=== PATIENT | male | born 1940 | race Caucasian/White ===

== ENCOUNTER 2019-09-05 08:04 | Emergency (ER) | payer MEDICARE, OTHER, SELFPAY ==
--- NOTE | 2019-09-05 08:27 | DI.CT.S_ITS ---
PROCEDURE: CT HEAD/BRAIN WO CON INDICATIONS: poss tia TECHNIQUE: Noncontrast 4.5 mm thick angled axial sections acquired from the foramen magnum to the vertex, with coronal and sagittal reformats. For radiation dose reduction, the following was used: automated exposure control, adjustment of mA and/or kV according to patient size. COMPARISON: None. FINDINGS: Image quality: Somewhat diminished locally in the area of metal artifact from what appears to be embolization coiling of a left [place] aneurysm, or other surgical procedure in that area. CSF spaces: Basal cisterns are patent. No extra-axial fluid collections. The ventricles are symmetric in size and shape. Brain: No intracranial bleeds or masses. There is cerebral volume loss for age, with resultant ventricular and sulcal prominence. There are periventricular and deep white matter chronic small vessel ischemic changes. There is intracranial internal carotid artery atherosclerosis. Skull and face: Calvarium and visualized facial bones appear intact, without suspicious lesions. Sinuses: Visualized sinuses and mastoids are clear. 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 No comparison studies, no mass or hemorrhage found. Sources possible stroke symptoms not identified. Dictated by: Ranjeet Arreguin M.D. on 09/05/2019 at 8:59 Approved by: Ranjeet Arreguin M.D. on 09/05/2019 at 9:01
[2019-09-05 08:31] VITALS: BP 147/71; PULSE 66; RESP 20; TEMP 36.8; O2SAT 100
[2019-09-05 08:36] LABS: Add Manual Diff / Slide Review NO; Basophils Absolute Auto 0 /uL (0-100); Basophils Percent Auto 0.7 % (0-2); Eosinophils Absolute Auto 100 /uL (0-450); Eosinophils Percent Auto 1.6 % (2-4); Hematocrit 40.6 % (41-53); Hemoglobin 13.8 g/dL (13.5-17.5); Lymphocytes Absolute Auto 1400 /uL (1100-4500); Lymphocytes Percent Auto 28.5 % (25-40); Mean Corpuscular Hemoglobin 31.9 PG (26-34); Monocytes Absolute Auto 400 /uL (0-900); Monocytes Percent Auto 7.6 % (3-14); Neutrophils Absolute Auto 3100 /uL (1500-7000); Neutrophils Percent Auto 61.6 % (50-75); Platelet Count 148 X10^3/uL (150-400); Red Blood Cell Count 4.32 X10^6/uL (4.5-5.9); Red Cell Distribution Width 13.2 % (11.6-14.8); White Blood Cell Count 5.1 X10^3/uL (4.5-11.0)
[2019-09-05 08:47] LABS: PTT Partial Thromboplastin Tim 29 SECONDS (26.4-36.2)
[2019-09-05 08:48] LABS: Alanine Aminotransferase 18 IU/L (21-72); Albumin 3.7 g/dL (3.5-5.0); Albumin Globulin Ratio 1.3 (1.0-2.8); Alkaline Phosphatase 55 U/L (38-126); Aspartate Aminotransferase 35 IU/L (17-59); BUN Creatinine Ratio 16.7 (6-22); Bilirubin Total 0.8 mg/dL (0.2-1.3); Blood Urea Nitrogen 15 mg/dL (9-20); Calcium 9.2 mg/dL (8.4-10.2); Carbon Dioxide 31 mmol/L (22-32); Chloride 105 mmol/L (98-107); Estimated Glomerular Filt Rate > 60.0 mL/min (>60); Globulin 2.9 g/dL (1.7-4.1); Glucose 89 mg/dL (80-110); HEMOLYSIS 34 (0-50); Potassium 3.7 mmol/L (3.4-5.1); Sodium 142 mmol/L (137-145); Total Protein 6.6 g/dL (6.3-8.2)
--- NOTE | 2019-09-05 08:53 | ED_ITS ---
HPI - Dizziness General Chief Complaint: Dizziness Stated Complaint: yesterday dizzy,doesn't remember Time Seen by Provider: 09/05/19 09:11 Source: patient Mode of arrival: Ambulatory Limitations: no limitations History of Present Illness HPI Narrative: 78-year-old male comes to the emergency department with episode of altered mental status yesterday. 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 Patient states he does remember how he got to the area that they served lunch but he managed to get there. He does not recall several hours. His family was present with and they states that he was complaining of feeling dizzy, being off balance and was not himself. They states he was not slurred or had dysarthria but he was slow to respond and did quite make sense. He did have a headache yesterday but did develop 1 early this morning which is not uncommon for him. He also complained of some vision changes yesterday which he described as fuzzy and kind of on the outside of his vision but this is all related 2nd hand as he does not recall. He did not have any vomiting, no chest pain, no shortness of breath no issues with bowel movements or urination. He did not have any obvious weakness on 1 side, no facial droop or other obvious focal neurologic changes. Patient does have a little bit a history of some drift or weakness in his right upper extre mity. 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 Surgery was done at [facility]. He has several antibiotic allergies. He is no longer on any daily medications other than Advil as needed for headaches. No tobacco, no alcohol or illicit. He lives in [place] and is here for the next week. Patient is currently asymptomatic. Related Data Home Medications Medication Instructions Recorded Confirmed No Known Home Medications 09/05/19 09/05/19 Allergies Allergy/AdvReac Type Severity Reaction Status Date / Time clindamycin AdvReac Mild Verified 09/05/19 08:37 ciprofloxacin [From Cipro] AdvReac Verified 09/05/19 08:37 Penicillins AdvReac Verified 09/05/19 08:37 Review of Systems Review of Systems ROS Unobtainable: All systems reviewed & are unremarkable except as noted in HPI and below PFSH Medical History (Updated 09/05/19 @ 10:51 by Earline Galdamez DO) Arteriovenous fistula (Acute) Surgical History (Updated 09/05/19 @ 09:40 by Earline Galdamez DO) H/O prostatectomy (Acute) Social History (Updated 09/05/19 @ 09:40 by Earline Galdamez DO) marital status: details: lives in [place] Smoking Status: Never smoker alcohol intake: never substance use type: does not use Social History (Updated 09/05/19 @ 09:40 by Earline Galdamez DO) marital status: details: lives in [place] Smoking Status: Never smoker alcohol intake: never substance use type: does not use Exam Narrative Exam Narrative: GEN: well nourished, well appearing male, alert and oriented x 3, patient appears to be in mild distress. HEENT: Atraumatic, pupils are equal round reactive to light, extraocular movements are intact, nares are clear, TMs are clear with no fluid, there is no conjunctival pallor. Throat is clear without any exudates, erythema, tonsillar enlargement or uvular deviation, no facial droop HEART: Regular rate and rhythm without murmur, clicks, rubs. No carotid bruits, pulses are equal in upper and lower extremities LUNGS:Lungs clear to auscultation, no wheezes, rales, crackles, chest moves symmetrically ABD:bowel sounds normal, soft, non-tender, no guarding, rebound, rigidity, no masses noted, no hepatosplenomegaly :No CVA tenderness MSCL: Non-tender, no muscle atrophy, muscles strength 5/5 upper and lower extremities, patient has very mild drift on the right although patient and family both state that this is chronic. Full range of motion, normal gait NEURO:CN 2-12 intact, sensation normal, reflexes 2/4 upper and lower extremities. finger nose finger test normal, heel maza test normal SKIN: No rash, no erythema. Initial Vital Signs Initial Vital Signs: Vital Signs Temperature 98.2 F 09/05/19 08:31 Pulse Rate 66 09/05/19 08:31 Respiratory Rate 20 09/05/19 08:31 Blood Pressure 147/71 H 09/05/19 08:31 Pulse Oximetry 100 09/05/19 08:31 Scores NIH Stroke Scale Level of Conciousness: Alert, keenly responsive Ask month/age: Answers both questions correctly. Open/close eyes, close hand: Performs both tasks correctly Best gaze horizontal: Normal Visual berrios: No visual loss Facial palsy: Normal symetrical movement Left arm drift: No drift for full 10 sec Right arm drift: Drifts down, not to bed (very mild) Left leg drift: No drift for full 10 sec Right leg drift: No drift for full 10 sec Limb ataxia: Absent Sensory on face/arms/legs: Normal, no sensory loss Best language: No aphasia, normal Dysarthria: Normal Extinction or inattention: No abnormality Total NIH Stroke scale score: 1 Course Orders Ordered: ED Orders 09/05/19 08:27 CT head/brain wo con Stat 09/05/19 08:28 Complete Blood Count AUTO DIFF Stat Comprehensive Metabolic Panel Stat Partial Thromboplastin Time Stat Prothrombin Time INR Stat Troponin & CK Cardiac Panel Stat 09/05/19 09:13 XR chest 1V Stat Vital Signs Vital signs: Vital Signs - 8 hr 09/05/19 11:05 Pulse Rate 79 Respiratory Rate 21 Blood Pressure 136/67 Pulse Oximetry 99 MDM - Dizziness Lab Data Attestation: I reviewed the patient's lab results. Result diagrams: 09/05/19 08:28 09/05/19 08:28 Labs: Lab Results 09/05/19 09/05/19 09/05/19 Range/Units 08:28 08:28 08:28 WBC 5.1 (4.5-11.0) X10^3/uL RBC 4.32 L (4.5-5.9) X10^6/uL Hgb 13.8 (13.5-17.5) g/dL Hct 40.6 L (41-53) % MCV 94.0 (80-100) fL MCH 31.9 (26-34) PG MCHC 34.0 (30-36) % RDW 13.2 (11.6-14.8) % Plt Count 148 L (150-400) X10^3/uL Neut % (Auto) 61.6 (50-75) % Lymph % (Auto) 28.5 (25-40) % Wheeler % (Auto) 7.6 (3-14) % Eos % (Auto) 1.6 L (2-4) % Baso % (Auto) 0.7 (0-2) % Neut # (Auto) 3100 (2016-0924) /uL Lymph # (Auto) 1400 (8096-1923) /uL Wheeler # (Auto) 400 (0-900) /uL Eos # (Auto) 100 (0-450) /uL Baso # (Auto) 0 (0-100) /uL PT 11.0 (10.1-12.7) SECONDS INR 1.0 (0.9-1.3) APTT 29 (26.4-36.2) SECONDS Sodium 142 (137-145) mmol/L Potassium 3.7 (3.4-5.1) mmol/L Chloride 105 (98-107) mmol/L Carbon Dioxide 31 (22-32) mmol/L BUN 15 (9-20) mg/dL Creatinine 0.90 (0.66-1.25) mg/dL Estimated GFR > 60.0 (>60) mL/min BUN/Creatinine Ratio 16.7 (6-22) Glucose 89 (80-110) mg/dL Calcium 9.2 (8.4-10.2) mg/dL Total Bilirubin 0.8 (0.2-1.3) mg/dL AST 35 (17-59) IU/L ALT 18 L (21-72) IU/L Alkaline Phosphatase 55 (38-126) U/L Total Creatine Kinase (55-170) U/L CK-MB (CK-2) CK-MB (CK-2) Rel Index Troponin I (0.01-0.034) ng/mL Total Protein 6.6 (6.3-8.2) g/dL Albumin 3.7 (3.5-5.0) g/dL Globulin 2.9 (1.7-4.1) g/dL Albumin/Globulin Ratio 1.3 (1.0-2.8) 09/05/19 Range/Units 08:28 WBC (4.5-11.0) X10^3/uL RBC (4.5-5.9) X10^6/uL Hgb (13.5-17.5) g/dL Hct (41-53) % MCV (80-100) fL MCH (26-34) PG MCHC (30-36) % RDW (11.6-14.8) % Plt Count (150-400) X10^3/uL Neut % (Auto) (50-75) % Lymph % (Auto) (25-40) % Wheeler % (Auto) (3-14) % Eos % (Auto) (2-4) % Baso % (Auto) (0-2) % Neut # (Auto) (1346-8828) /uL Lymph # (Auto) (9209-3503) /uL Wheeler # (Auto) (0-900) /uL Eos # (Auto) (0-450) /uL Baso # (Auto) (0-100) /uL PT (10.1-12.7) SECONDS INR (0.9-1.3) APTT (26.4-36.2) SECONDS Sodium (137-145) mmol/L Potassium (3.4-5.1) mmol/L Chloride (98-107) mmol/L Carbon Dioxide (22-32) mmol/L BUN (9-20) mg/dL Creatinine (0.66-1.25) mg/dL Estimated GFR (>60) mL/min BUN/Creatinine Ratio (6-22) Glucose (80-110) mg/dL Calcium (8.4-10.2) mg/dL Total Bilirubin (0.2-1.3) mg/dL AST (17-59) IU/L ALT (21-72) IU/L Alkaline Phosphatase (38-126) U/L Total Creatine Kinase 91 (55-170) U/L CK-MB (CK-2) TNP CK-MB (CK-2) Rel Index TNP Troponin I < 0.012 (0.01-0.034) ng/mL Total Protein (6.3-8.2) g/dL Albumin (3.5-5.0) g/dL Globulin (1.7-4.1) g/dL Albumin/Globulin Ratio (1.0-2.8) Urine Dip Bedside Urine Glucose Negative Bedside Urine Bilirubin - Negative Bedside Urine Ketone - Negative Urine Specific [place] 1.010 Bedside Urine Occult Blood - Negative Bedside Urine pH 7.5 Bedside Urine Protein + 30 Bedside Urine Urobilinogen - Negative Bedside Urine Nitrite - Negative Bedside Urine Leukocytes - Negative Esterase Imaging Data CT scan - head: Radiologist's impression: Clark Gonzales M 1940 [address] [id number] [address] Scan Report Signed Patient: Clark Gonzalse [facility]#: [id number] : [id number]:[id number] Age/Sex: 78 / MDate of Service: 09/05/19 Loc: ED Accession Number: [id number] Procedure: CT head/brain wo con Ordering Provider: Earline Galdamez D.O. PROCEDURE: CT HEAD/BRAIN WO CON INDICATIONS: poss tia TECHNIQUE: Noncontrast 4.5 mm thick angled axial sections acquired from the foramen magnum to the vertex, with coronal and sagittal reformats. For radiation dose reduction, the following was used: automated exposure control, adjustment of mA and/or kV according to patient size. COMPARISON: None. FINDINGS: Image quality: Somewhat diminished locally in the area of metal artifact from what appears to be embolization coiling of a left [place] aneurysm, or other surgical procedure in that area. CSF spaces: Basal cisterns are patent. No extra-axial fluid collections. The ventricles are symmetric in size and shape. Brain: No intracranial bleeds or masses. There is cerebral volume loss for age, with resultant ventricular and sulcal prominence. There are periventricular and deep white matter chronic small vessel ischemic changes. There is intracranial internal carotid artery atherosclerosis. Skull and face: Calvarium and visualized facial bones appear intact, without suspicious lesions. Sinuses: Visualized sinuses and mastoids are clear. 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 No comparison studies, no mass or hemorrhage found. Sources possible stroke symptoms not identified. Dictated by: Ranjeet Arreguin M.D. on 09/05/2019 at 8:59 Approved by: Ranjeet Arreguin M.D. on 09/05/2019 at 9:01 Chest x-ray: Radiologist's impression: [facility] [address] [place] [id number] XRay Report Signed Patient: Clark Gonzales [facility]#: [id number] : 8Acct:[id number] Age/Sex: 78 / MDate of Service: 09/05/19 Loc: ED Accession Number: [id number] Procedure: XR chest 1V Ordering Provider: Earline Galdamez D.O. PROCEDURE: XR CHEST 1V INDICATIONS: dizziness TECHNIQUE: One view of the chest was acquired. COMPARISON: None. FINDINGS: Surgical changes and devices: None. Lungs and pleura: Increased interstitial markings. No consolidation. No pleural effusions or pneumothorax. Mediastinum: Mild fullness in the right suprahilar region. Tortuous aorta. Heart size is normal. Bones and chest wall: No suspicious bony lesions. Overlying soft tissues appear unremarkable. IMPRESSION: No acute cardiopulmonary abnormality. Mild fullness in the right suprahilar region may be due to adenopathy. Emphysematous change. Dictated by: Herbie Wolfe M.D. on 09/05/2019 at 9:46 Approved by: Herbie Wolfe M.D. on 09/05/2019 at 9:48 ECG Data Attestation: I personally reviewed and interpreted this ECG as follows: Prior ECG tracings: available for review Interpretation: Sinus bradycardia with sinus arrhythmia, rate of 59 PA 185 QRS of 101 and QTC 387. No acute ST changes. MDM Narrative Medical decision making narrative: Patient comes in with episode of altered mental status yesterday, patient has been asymptomatic since yesterday other than some mild headache which is improved. He has a little bit of drift on his right but patient and family states this is chronic. Otherwise had NIH scale is only 1 secondary to that. Discussed with patient he could have had a TIA, they asked about hypoglycemia they did not check his sugar they do not have that capability but he continued to have symptoms after 2 plates of food so my suspicion for hypoglycemia is much lower. Discussed with patient and offer observation he prefers to return home and follow up in [place]. We discussed he should take at least a baby aspirin daily until cleared by his physician. Discharge Plan Departure Patient Disposition: Home Clinical Impression: Altered mental status Discharge Date/Time: 09/05/19 11:05 Instructions: DI for Transient Ischemic Attack Activity Restrictions/Additional Instructions: Follow-up with your primary care physician when you return to [place] for evaluation and workup for possible TIA. I would recommend a baby aspirin, aspirin 81 mg daily. I do not recommend taking that with your supplemental herb. You can clarify with the pharmacist. Return emergency department for new or worsening symptoms, recurrent symptoms, altered mental status, lightheadedness, passing out, new chest pain, shortness of breath, persistent vomiting, new weakness, numbness, inability speak, facial or other new or concerning symptoms. Prescriptions: No Action No Known Home Medications RF: 0
--- NOTE | 2019-09-05 09:13 | DI.RAD.S_ITS ---
PROCEDURE: XR CHEST 1V INDICATIONS: dizziness TECHNIQUE: One view of the chest was acquired. COMPARISON: None. FINDINGS: Surgical changes and devices: None. Lungs and pleura: Increased interstitial markings. No consolidation. No pleural effusions or pneumothorax. Mediastinum: Mild fullness in the right suprahilar region. Tortuous aorta. Heart size is normal. Bones and chest wall: No suspicious bony lesions. Overlying soft tissues appear unremarkable. IMPRESSION: No acute cardiopulmonary abnormality. Mild fullness in the right suprahilar region may be due to adenopathy. Emphysematous change. Dictated by: Herbie Wolfe M.D. on 09/05/2019 at 9:46 Approved by: Herbie Wolfe M.D. on 09/05/2019 at 9:48
[2019-09-05 09:23] LABS: Creatine Kinase 91 U/L (55-170)
[2019-09-05 09:36] LABS: Troponin I < 0.012 ng/mL (0.01-0.034)
[2019-09-05 11:05] VITALS: BP 136/67; PULSE 79; RESP 21; O2SAT 99
== END 2019-09-05 11:05 | disposition home or self-care (01) ==
PROVIDERS: Emergency Provider Emergency Medicine
DX: R41.82 Altered mental status, unspecified (principal)
CPT/HCPCS: 36415; 70450; 71045; 80053; 81003; 82550; 84484; 85025; 85610; 85730; 93005; 93041; 99283; 99285